=== PATIENT | female | born 1965 | race Caucasian/White ===

== ENCOUNTER 2017-11-28 14:39 | Emergency (ER) | payer OTHER ==
[~2017-11-28] VITALS: Ht 170.2 cm; Wt 108.9 kg
[2017-11-28] MEDS ORDERED: NORCO 5-325 TA1 EAC1 PO (16:15)
[2017-11-28 16:31] VITALS: BP 127/96
== END 2017-11-28 16:32 | disposition home or self-care (01) ==
LOC: M.ERS 14:39
DX: M22.8X2 Other disorders of patella, left knee (principal); M17.12 Unilateral primary osteoarthritis, left knee; F10.99 Alcohol use, unspecified with unspecified alcohol-induced disorder

== ENCOUNTER 2018-08-18 16:39 | Emergency (ER) | payer OTHER ==
[~2018-08-18] VITALS: Ht 170.2 cm; Wt 113.8 kg
[~2018-08-18 16:39] MED LIST: NORCO 5-325 TA1 EAC1 PO
[2018-08-18 18:09] VITALS: BP 159/91
== END 2018-08-18 18:09 | disposition home or self-care (01) ==
LOC: M.ERS 16:39
DX: L30.9 Dermatitis, unspecified (principal); M79.7 Fibromyalgia; M19.90 Unspecified osteoarthritis, unspecified site; Z88.0 Allergy status to penicillin